=== PATIENT | male | born 1935 | race Native Hawaiian/Other Pacific Islander ===

== ENCOUNTER 2022-02-02 11:56 | Emergency (ER) | payer OTHER ==
[~2022-02-02] VITALS: Ht 167.6 cm; Wt 70.8 kg
[~2022-02-02 11:56] MED LIST: ACET-206 PO; DOCU100C10 PO; DOK100 MG PO; DONEPEZIL HYDRO10 M1 PO; GNP MELATONIN MA5 MG PO; HYDROXYZINE HYD50 MG PO; LOPERAMIDE2 MG PO; LORA1TAB17 PO; MAGNSUS68 PO; MILK OF MA400 MG/5 M PO; OLANZAPINE5 MG PO; QUETIAPINE100 MG PO; RISP0.5T2 PO; SEROQUEL25 MG PO; TRAZ50TA36 PO; TYLENOL325 MG PO; [UNRECOGNIZED DRUG - OTHER] PO
[2022-02-02 11:57] VITALS: BP 113/71; TEMP 97.6
[2022-02-02 12:24] LABS: PLATELET COUNT 267 K/uL (142-355)
[2022-02-02 12:30] LABS: POTASSIUM 3.9 mmol/L (3.6-5.2)
[2022-02-02] MEDS ORDERED: STOOL SOFTNR100 MG PO (15:10)
[2022-02-02] MEDS ORDERED: DONEPEZIL HYDRO10 MG PO (15:11)
[2022-02-02] MEDS ORDERED: MELATONIN5 M2 PO (15:13)
[2022-02-02] MEDS ORDERED: XYZAL ALLERGY 245 MG PO (15:13)
[2022-02-02] MEDS ORDERED: QUET100T2 PO (15:14)
[2022-02-02] MEDS ORDERED: QUETIAPINE50 MG PO (15:15)
[2022-02-02] MEDS ORDERED: RISP0.5T2 PO (15:16)
[2022-02-02] MEDS ORDERED: THEREMS M PO (15:16)
[2022-02-02] MEDS ORDERED: TRAZ50TA36 PO (15:17)
[2022-02-02] MEDS ORDERED: TYLENOL325 MG PO (15:18)
[2022-02-02] MEDS ORDERED: HYDROXYZINE HYD50 MG PO (15:19)
[2022-02-02] MEDS ORDERED: ANTI-DIARRHEAL2 MG PO (15:20)
[2022-02-02] MEDS ORDERED: LORA1TAB17 PO (15:21)
[2022-02-02] MEDS ORDERED: MAGNSUS68 PO (15:22)
== END 2022-02-02 13:04 | disposition other institution (70) ==
LOC: ED 11:56
PROVIDERS: Family Medicine
DX: R45.1 Restlessness and agitation (principal); F03.91 Unspecified dementia, unspecified severity, with behavioral disturbance; Z91.83 Wandering in diseases classified elsewhere; Z11.52 Encounter for screening for COVID-19; Z04.6 Encounter for general psychiatric examination, requested by authority
CPT/HCPCS: 80053; 81002; 85027; 87635; 93005; 99283; U0003